=== PATIENT | female | born 1965 | race Caucasian/White ===

== ENCOUNTER → 2016-07-27 | Day surgery (SDC) | payer OTHER ==
[2016-07-15 15:22] VITALS: Ht 152.4 cm; Wt 75.9 kg
[~2016-07-27] VITALS: Ht 152.4 cm; Wt 75.9 kg
[~2016-07-27] MED LIST: BUSP5TAB59 PO; DEXL60CA4 PO; ESCI1TAB10 PO; LIDOCAINE HCL 2% 2 ML VIAL (20MG/ML) ONE; LUVOX PO; MULT-513 PO; NUTRPAK PO; OMEGCAP2 PO; PROPOFOL IV EMULSION 10 MG/ML 20 ML VIAL IV ONE; SODIUM CHLORIDE 0.9% 500ML 500 ML IV ONE; TAMS0.4C38 PO
--- NOTE | 2016-07-27 14:20 | Endo History and Physical ---
History & Physical Date of Service: Jul 27, 2016. Chief Complaint: Clarke's Referring Physician: Dr. Yoel Bennett History of Present Illness 50 yo CF who presents for EGD secondary to Clarke's Esophagus. Past Medical History Arthritis, Gastrointestinal Disorder, Anxiety, Reflux, Cancer, Depression Past Surgical History Hx Cardiac Surgery: No Hx Internal Defibrillator: No Hx Pacemaker: No Hx Abdominal Surgery: Yes (KESHAV BSO, BARTHOLIN CYST REMOVAL) Hx of Implantable Prosthesis: No Hx Post-Op Nausea and Vomiting: No Hx Cancer Surgery: Yes (RT BREAST LUMPECTOMY AND BLT MASTECTOMY WITH TRAM FLAP RECON) Hx Thoracic Surgery: No Hx Orthopedic: No Hx Urinary Tract Surgery: No Family History Polyp Social History Smoking Status: Former Smoker Hx Substance Use: No Hx Alcohol Use: Yes (OCCASIONAL) Allergies Coded Allergies: No Known Allergies (Verified , 07/15/16) Current Medications Reported Home Medications Medications Dose Route/Sig Max Daily Dose Days Date Category Dose Instructions Ibs Support (Nutritional Supplements) 1 Wade Wade 1 Tab PO QAM 07/15/16 Reported Fish Oil ([place]-3 Fatty Acids) 1 Cap Cap 1 Tab PO QAM 07/15/16 Reported [Luvox] 1 Tab PO HS 07/15/16 Reported Buspirone Hcl 5 Mg Tab 5 Mg PO TID PRN 06/18/13 Reported Dexilant (Dexlansoprazole) 60 Mg Cap 60 Mg PO QAM 12/17/12 Reported TAKE 1/2HOUR PRIOR TO BREAKFAST Mvi With Minerals (Multivitamins/Minerals) Tab 1 Tab PO QAM 12/17/12 Reported Vital Signs Weight (Kilograms): 75.91 Height (Feet): 5 Height (Inches): 0 Date Time Temp Pulse Resp B/P Pulse Ox O2 Delivery O2 Flow Rate FiO2 07/27/16 13:41 36.6 68 16 137/89 98 Room Air Physical Exam General Appearance: WD/WN, no apparent distress Respiratory/Chest: Auscultation: breath sounds normal Cardiovascular: Heart Auscultation: RRR Abdomen: Bowel Sounds: normal Inspection & Palpation: soft, non-distended, no tenderness, guarding & rebound Assessment and Plan Assessment: 50 yo CF who presents for EGD secondary to Clarke's Esophagus. Plan: Proceed with EGD.
--- NOTE | 2016-07-27 14:42 | Discharge Instructions ---
Endoscopy Patient Instructions Date / Procedure(s) Performed Jul 27, 2016. EGD Allergy Information Coded Allergies: No Known Allergies (Verified , 07/15/16) Discharge Date / Findings Jul 27, 2016. Gastritis s/p biopsies Hiatal hernia Clarke's esophagus s/p biopsies Medication Instructions OK to resume all medications today as prescribed Reported Home Medications Medications Dose Route/Sig Max Daily Dose Days Date Category Dose Instructions Ibs Support (Nutritional Supplements) 1 Wade Wade 1 Tab PO QAM 07/15/16 Reported Fish Oil ([place]-3 Fatty Acids) 1 Cap Cap 1 Tab PO QAM 07/15/16 Reported [Luvox] 1 Tab PO HS 07/15/16 Reported Buspirone Hcl 5 Mg Tab 5 Mg PO TID PRN 06/18/13 Reported Dexilant (Dexlansoprazole) 60 Mg Cap 60 Mg PO QAM 12/17/12 Reported TAKE 1/2HOUR PRIOR TO BREAKFAST Mvi With Minerals (Multivitamins/Minerals) Tab 1 Tab PO QAM 12/17/12 Reported Provider Instructions Activity Restrictions - No exercising or heavy lifting for 24 hours. - Do not drink alcohol the day of the procedure. - Do not drive a car or operate machinery until the day after the procedure. - Do not make any important decisions or sign important papers in 24 hours after the procedure. Following Day: - Return to full activity which may include returning to work/school. Diet Start your diet with liquids and light foods (jello, soup, juice, toast). Then eat your usual diet if not nauseated. Treatment For Common After Affects For mild abdominal pain, bloating, or excessive gas: - Rest - Eat lightly - Lie on right side Follow-Up Information Follow-up with Dr. Yoel Bennett as scheduled Anesthesia Information What You Should Know You have had a procedure that required some medicine to reduce anxiety and discomfort. This treatment is called moderate sedation. After receiving the treatment, you may be sleepy, but you will be able to breathe on your own. The effects of the treatment may last for several hours. Follow these instructions along with Activity/Diet recommendations noted above: * Do NOT do anything where dizziness or clumsiness would be dangerous. * Rest quietly at home today, then you can be up and about tomorrow. * Have a responsible person stay with you the rest of today. * You may have had an I.V. today. If so, you may take the dressing off later today. Recommendations Call your doctor if: * Trouble breathing * Continuous vomiting for more than 24 hours * Temperature above 101 degrees * Severe abdominal pain or bloating * Pain not relieved by pain medicine ordered * There is increased drainage or redness from any incision * A large amount of rectal bleeding greater than 2-3 tablespoons. (If you had a polyp/s removed or have hemorrhoids, a small amount of blood - from the rectum is to be expected.) * You have any unanswered questions or concerns. IN THE EVENT OF A SERIOUS EMERGENCY, GO TO THE NEAREST EMERGENCY ROOM Your discharge instructions were prepared by provider Dereje Vasquez. Patient Instructions Signature Page Farhana Goyal Patient (or Guardian) Signature/Date: I have read and understand the instructions given to me by my caregivers. Caregiver/RN/Doctor Signature/Date: The above-named patient and/or guardian has received patient instructions on this date. + Original Patient Signature Page (only) stays with chart. Please make copy for patient.
--- NOTE | 2016-07-27 14:48 | GI REPORT ---
Procedure Date: 07/27/2016 2:28 PM Procedure: Upper GI endoscopy Indications: Follow-up of Clarke's esophagus Medicines: Monitored Anesthesia Care Complications: No immediate complications. Estimated Blood Loss: Estimated blood loss: none. Procedure: Pre-Anesthesia Assessment: - Prior to the procedure, a History and Physical was performed, and patient medications and allergies were reviewed. The patient's tolerance of previous anesthesia was also reviewed. The risks and benefits of the procedure and the sedation options and risks were discussed with the patient. All questions were answered, and informed consent was obtained. Prior Anticoagulants: The patient has taken no previous anticoagulant or antiplatelet agents. ASA Grade Assessment: II - A patient with mild systemic disease. After reviewing the risks and benefits, the patient was deemed in satisfactory condition to undergo the procedure. After obtaining informed consent, the endoscope was passed under direct vision. Throughout the procedure, the patient's blood pressure, pulse, and oxygen saturations were monitored continuously. The scope was introduced through the mouth, and advanced to the second part of duodenum. The upper GI endoscopy was accomplished without difficulty. The patient tolerated the procedure well. Findings: There were esophageal mucosal changes consistent with short-segment Clarke's esophagus present at the gastroesophageal junction. The maximum longitudinal extent of these mucosal changes was 2 cm in length. Mucosa was biopsied with a cold forceps for histology. One specimen bottle was sent to pathology. A small hiatus hernia was present. Localized mild inflammation characterized by erythema was found in the gastric antrum. Biopsies were taken with a cold forceps for histology. The examined duodenum was normal. Impression: - Esophageal mucosal changes consistent with short-segment Clarke's esophagus. Biopsied. - Small hiatus hernia. - Gastritis. Biopsied. - Normal examined duodenum. Recommendation: - Resume previous diet. - Continue present medications. - Await pathology results. - Return to primary care physician as previously scheduled. Dereje Vasquez DO 07/27/2016 2:48:34 PM This report has been signed electronically. Note Initiated On: 07/27/2016 2:28 PM I attest to the content of the Intraoperative Record and orders documented therein, exceptions below
--- NOTE | 2016-07-27 15:01 | Anesthesiology Progress Note ---
Anesthesia Post Op Note Date & Time Jul 27, 2016 at 15:01 Vital Signs Pain Intensity: 0 Vital Signs Past 12 Hours Date Time Temp Pulse Resp B/P Pulse Ox O2 Delivery O2 Flow Rate FiO2 07/27/16 15:00 73 16 142/98 96 Room Air 07/27/16 14:45 78 16 119/76 99 Room Air 07/27/16 13:41 36.6 68 16 137/89 98 Room Air Notes Mental Status: alert / awake / arousable, participated in evaluation Pt Amnestic to Procedure: Yes Nausea / Vomiting: adequately controlled Pain: adequately controlled Airway Patency, RR, SpO2: stable & adequate BP & HR: stable & adequate Hydration State: stable & adequate Anesthetic Complications: no major complications apparent Pt doing well.
[2016-07-27 15:12] VITALS: BP 148/101; PULSE 70; O2SAT 96
== END | disposition home or self-care (01) ==
LOC: C.GI 13:06
PROVIDERS: ATTEND Internal Medicine
DX: K29.60 Other gastritis without bleeding (principal); K22.70 Barrett's esophagus without dysplasia; K44.9 Diaphragmatic hernia without obstruction or gangrene; Z87.891 Personal history of nicotine dependence; Z90.710 Acquired absence of both cervix and uterus; Z90.722 Acquired absence of ovaries, bilateral; Z90.79 Acquired absence of other genital organ(s)

== ENCOUNTER → 2016-10-06 | Outpatient (CLI) | payer OTHER ==
[~2016-10-06] MED LIST changes: -LIDOCAINE HCL 2% 2 ML VIAL (20MG/ML) ONE; -PROPOFOL IV EMULSION 10 MG/ML 20 ML VIAL IV ONE; -SODIUM CHLORIDE 0.9% 500ML 500 ML IV ONE
[2016-10-06 12:20] LABS: BASO % 0.3 %; BASO ABS # 0.02 K/uL (0-0.2); COMPLETE YES; EOS % 3.4 %; HEMATOCRIT 42.2 % (37-47); IG% 0.2 %; LYMPH ABS # 1.96 K/uL (1.2-3.4); MEAN CELL VOLUME 90.8 fL (80-100); MEAN CORPUSCULAR HEMOGLOBIN 29.9 pg (25-34); MEAN CORPUSCULAR HGB CONC 32.9 g/dl (32-36); MEAN PLATELET VOLUME 11.7 fL (7.4-10.4); MONO % 4.6 %; NEUT % 59.5 %; PLATELET COUNT 206 K/uL (130-400); RED BLOOD COUNT 4.65 M/uL (4.2-5.4); WHITE BLOOD COUNT 6.13 K/uL (4.8-10.8)
[2016-10-06 12:41] LABS: URINE APPEARANCE CLEAR (CLEAR); URINE BILIRUBIN NEG (NEG); URINE COLOR YELLOW; URINE EPITHELIAL CELL AUTO >30 /lpf (0-5); URINE NITRITE NEG (NEG); URINE SPECIFIC GRAVITY 1.023 (1.000-1.030); UROBILINOGEN NEG (NEG); ZZUR CULT IF INDIC CLEAN CATCH NO
[2016-10-06 12:49] LABS: MANUAL MICROSCOPIC REQUIRED? NO; REVIEW REQ? NO
[2016-10-06 12:55] LABS: CALCIUM 8.7 mg/dl (8.5-10.1)
[2016-10-06 13:03] LABS: ALT/SGPT 39 U/L (12-78); AST/SGOT 20 U/L (15-37); BLOOD UREA NITROGEN 19 mg/dl (7-18); BUN/CREATININE RATIO 21.9 (10-20); CARBON DIOXIDE 23 mmol/L (21-32); CHLORIDE 109 mmol/L (98-107); CHOLESTEROL 232 mg/dl (0-200); CREATININE 0.88 mg/dl (0.60-1.20); GLUCOSE 108 mg/dl (70-99); POTASSIUM 4.2 mmol/L (3.5-5.1); SODIUM 142 mmol/L (136-145); TRIGLYCERIDES 114 mg/dl (0-150); VERY LOW DENSITY LIPOPROT CALC 23 mg/dl
[2016-10-06 13:14] LABS: ALB/GLOB RATIO 0.9 (0.9-2); ALKALINE PHOSPHATASE 109 U/L (45-117); CHOLESTEROL/HDL RATIO 5.8; HDL CHOLESTEROL 40 mg/dl; LDL CHOLESTEROL CALCULATED 169 mg/dl
== END | disposition home or self-care (01) ==
LOC: C.LABBFT 07:42
PROVIDERS: ATTEND Physician Assistant Medical
DX: M54.9 Dorsalgia, unspecified (principal); E78.5 Hyperlipidemia, unspecified; R42 Dizziness and giddiness

== ENCOUNTER 2016-11-13 19:58 | Emergency (ER) | payer OTHER ==
[~2016-11-13] VITALS: Ht 152.4 cm; Wt 79.9 kg
[~2016-11-13 19:58] MED LIST changes: -ESCI1TAB10 PO; -TAMS0.4C38 PO
[2016-11-13 20:01] VITALS: TEMP 36.9; Ht 152.4 cm; Wt 79.9 kg
[2016-11-13] MEDS ORDERED: SODIUM CHLORIDE 0.9% 1000ML 1,000 ML IV STA (20:10)
[2016-11-13] MEDS ORDERED: ONDANSETRON INJ 2 MG/ML 2 ML VIAL IV STA (20:10)
[2016-11-13] MEDS ORDERED: KETOROLAC TROMETHAMINE 30 MG/ML VIAL IV STA (20:10)
[2016-11-13] MEDS ORDERED: MoRPHine SULFATE 4 MG/ML 1 ML CARP\\VIAL IV PRN (20:15)
--- NOTE | 2016-11-13 20:16 | EMERGENCY ROOM VISIT NOTE ---
History Report prepared by Dana: Des Correa Under the Supervision of: Dr. Aamir Tierney M.D. First contact with patient: 20:04 Chief Complaint: FLANK PAIN Stated Complaint: BACK PAIN RADITING TO LF SIDE/ABD History of Present Illness The patient is a 50 year old female who presents to the Emergency Room with complaints of worsening pain in her left flank that began night, 3 days prior to this visit. She rates the pain as a 6/10 in severity. The patient states that the pain is now radiating into her left lower abdominal quadrant as well. She denies any associated urinary irregularities or fevers. There is nothing that worsens/improves her pain. The patient had a similar episode roughly one month ago at work, but it was not as severe. She did visit with her primary care physician due to this episode and was evaluated for blood clotting and infection. These tests were unremarkable,and she opted to not have further testing done as the pain had resolved. She has had the flank pain intermittently since this initial episode. The patient has had a kidney stone in the past, and passed the stone without any intervention. 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 A total of 10 systems reviewed and were otherwise negative. Past Medical & Surgical Medical Problems: (1) Acid reflux (2) Clarke's esophagus Surgical Problems: (1) H/O mastectomy (2) H/O: hysterectomy Family History Cancer Diabetes mellitus Hypertension Kidney stones Social History Smoking Status: Never Smoker Alcohol Use: occasionally Marital Status: Housing Status: lives with family Occupation Status: employed Current/Historical Medications Scheduled Dexlansoprazole (Dexilant), 60 MG PO QAM Escitalopram Oxalate (Lexapro), 20 MG PO DAILY Multivitamins/Minerals (Mvi With Minerals), 1 TAB PO QAM Tamsulosin Hcl (Flomax), 0.4 MG PO DAILY Scheduled PRN Buspirone Hcl (Buspirone Hcl), 5 MG PO TID PRN for Anxiety Allergies Coded Allergies: No Known Allergies (Verified , 07/15/16) Physical Exam Vital Signs Date Time Temp Pulse Resp B/P (MAP) Pulse Ox O2 Delivery O2 Flow Rate FiO2 11/13/16 21:48 67 16 116/84 94 Room Air 11/13/16 21:05 71 16 143/96 94 Room Air 11/13/16 20:01 36.9 93 18 171/127 95 Room Air Physical Exam GENERAL: Patient is in no acute distress. HEENT: No acute trauma, normocephalic atraumatic, mucous membranes moist, no nasal congestion, no scleral icterus. NECK: No stridor, no adenopathy, no meningismus, trachea is midline. LUNGS: Clear to auscultation bilaterally, no wheeze, no rhonchi, breath sounds equal. HEART: Without murmurs gallops or rubs, regular rate and rhythm. ABDOMEN: Soft, with tenderness along the entire left side. Bowel sounds positive , no hernias, no peritonitis. BACK: There is left flank discomfort with percussion. EXTREMITIES: No cyanosis or edema, full range of motion of all the joints without pain or difficulty, no signs for acute trauma. NEUROLOGIC: Oriented x 3, no acute motor or sensory deficits, no focal weakness. SKIN: No rash, no jaundice, no diaphoresis. Medical Decision & Procedures ER Provider Diagnostic Interpretation: Radiology results as stated below per my review and radiologist interpretation: CT SCAN OF THE ABDOMEN AND PELVIS WITHOUT CONTRAST CLINICAL HISTORY: Left flank pain and hematuria COMPARISON STUDY: December 17, 2012 TECHNIQUE: CT scan of the abdomen and pelvis was performed from the lung bases to the proximal femurs. Images are reviewed in the axial, sagittal, and coronal planes. IV contrast was not administered for this examination. A dose lowering technique was utilized adhering to the principles of ALARA. CT DOSE: 1390.66 mGy.cm FINDINGS: Lower chest: The heart is normal in size and configuration, without pericardial effusion. The lung bases and pleural spaces are clear. Liver: The unenhanced liver is normal in size, contour, and attenuation. There is no intrahepatic biliary ductal dilatation. Gallbladder: Unremarkable. Spleen: Normal in size and attenuation. Pancreas: Unremarkable. Adrenal glands: Unremarkable. Kidneys: No renal, ureteral, or bladder calculi are visualized. Bowel: There are no transition zones indicate bowel obstruction. The appendix appears normal. There is no acute diverticulitis. Peritoneum: There is no intraperitoneal free air or abdominal ascites. Vasculature: The abdominal aorta is normal in course and caliber. Adenopathy: None. Pelvic viscera: The uterus appears surgically absent Skeletal structures: No destructive osseous lesions are seen. IMPRESSION: 1. No renal, ureteral, or bladder calculi identified 2. No evidence of bowel obstruction. No evidence of free air 3. Normal appendix. No evidence of acute diverticulitis. Electronically signed by: Perry Allred M.D. 11/13/2016 9:05 PM Dictated Date/Time: 11/13/2016 9:01 PM Laboratory Results 11/13/16 20:20 11/13/16 20:20 Test 11/13/16 20:20 11/13/16 20:27 Red Blood Count 4.93 M/uL (4.2-5.4) Mean Corpuscular Volume 89.7 fL (80-100) Mean Corpuscular Hemoglobin 30.6 pg (25-34) Mean Corpuscular Hemoglobin Concent 34.2 g/dl (32-36) RDW Standard Deviation 42.7 fL (36.4-46.3) RDW Coefficient of Variation 13.0 % (11.5-14.5) Mean Platelet Volume 11.3 fL (7.4-10.4) Anion Gap 9.0 mmol/L (3-11) Est Creatinine Clear Calc Drug Dose 74.9 ml/min Estimated GFR () 93.3 Estimated GFR (Non- 80.5 BUN/Creatinine Ratio 16.6 (10-20) Calcium Level 9.4 mg/dl (8.5-10.1) Lipase 176 U/L (73-393) Human Chorionic Gonadotropin, Qual NEG (NEG) Urine Color YELLOW Urine Appearance CLEAR (CLEAR) Urine pH 5.0 (4.5-7.5) Urine Specific [place] 1.017 (1.000-1.030) Urine Protein NEG (NEG) Urine Glucose (UA) NEG (NEG) Urine Ketones NEG (NEG) Urine Occult Blood NEG (NEG) Urine Nitrite NEG (NEG) Urine Bilirubin NEG (NEG) Urine Urobilinogen NEG (NEG) Urine Leukocyte Esterase SMALL (NEG) Urine WBC (Auto) 5-10 /hpf (0-5) Urine RBC (Auto) 0-4 /hpf (0-4) Urine Hyaline Casts (Auto) 1-5 /lpf (0-5) Urine Epithelial Cells (Auto) >30 /lpf (0-5) Urine Bacteria (Auto) NEG (NEG) Laboratory results reviewed by me. Medications Administered Medications (Trade) Dose Ordered Sig/Sixto Route Start Time Stop Time Status Last Admin Dose Admin Ondansetron HCl (Zofran Inj) 4 mg NOW STAT IV 11/13/16 20:10 11/13/16 20:12 DC 11/13/16 20:33 4 MG Sodium Chloride 1,000 ml @ 999 mls/hr Q1H1M STAT IV 11/13/16 20:10 11/13/16 21:10 DC 11/13/16 20:35 999 MLS/HR Morphine Sulfate (MoRPHine SULFATE INJ) 4 mg Q15M PRN IV 11/13/16 20:15 11/13/16 22:05 DC 11/13/16 20:35 4 MG Ketorolac Tromethamine (Toradol Inj) 30 mg NOW STAT IV 11/13/16 20:10 11/13/16 20:12 DC 11/13/16 20:34 30 MG ED Course 2005: The patient was evaluated in room B8. A complete history and physical exam was performed. 2009: Ordered Toradol 30 mg IV, Sodium Chloride 1000 mL @ 999 mL/hr IV, Zofran 4 mg IV. 2015: Ordered Morphine Sulfate 4 mg IV. 2129: Reevaluated the patient. Discussed results and discharge instructions: she verbalized understanding and agreement. The patient is ready for discharge. Medical Decision Differential Diagnosis includes; pyelonephritis, musculoskeletal pain, renal colic, UTI, renal failure, pancreatitis, pneumonia, shingles. There is no leukocytosis or concerning anemia. No significant electrolyte abnormality, kidney failure. There is no pancreatitis. testing is negative. Urinalysis does not show infection. Abdominal and pelvis CT does not show any obvious ureteral stone, there is no hydronephrosis. No other findings that would explain the left flank and abdominal pain. The patient received IV saline, she received IV Toradol, IV morphine and IV Zofran. She is feeling improved. The patient has had renal stones before. She may be trying to pass a very small stone. She may be suffering from musculoskeletal pain. She has had symptoms intermittently for a month. The patient will be discharged with Flomax to help urinary dilation. She will strain all her urine for a possible stone-certainly, a small stone could be missed on CT. Hydration was encouraged, Motrin or Tylenol or both were encouraged for pain. Patient was told to return to the ER for vomiting, worsening symptoms or lack of improvement. She will follow with her doctor this week. Impression Primary Impression: Left flank pain Scribe Attestation The scribe's documentation has been prepared under my direction and personally reviewed by me in its entirety. I confirm that the note above accurately reflects all work, treatment, procedures, and medical decision making performed by me. Departure Information Dispostion Home / Self-Care Prescriptions Tamsulosin Hcl (FLOMAX) 0.4 Mg Cap 0.4 MG PO DAILY, #10 CAP Prov: Aamir Tierney M.D. 11/13/16 Referrals Yoel Bennett M.D. (PCP) Forms HOME CARE DOCUMENTATION FORM, IMPORTANT VISIT INFORMATION Patient Instructions My [facility] Additional Instructions motrin 600 mg 3x per day for pain tylenol for pain also as needed heat to the back may help strain all the urine stay well hydrated flomax daily to try and help pass any stones return for uncontrolled pain, vomiting or fever
[2016-11-13 20:39] LABS: HEMATOCRIT 44.2 % (37-47); MEAN CELL VOLUME 89.7 fL (80-100); MEAN CORPUSCULAR HEMOGLOBIN 30.6 pg (25-34); MEAN CORPUSCULAR HGB CONC 34.2 g/dl (32-36); MEAN PLATELET VOLUME 11.3 fL (7.4-10.4); PLATELET COUNT 219 K/uL (130-400); RED BLOOD COUNT 4.93 M/uL (4.2-5.4); WHITE BLOOD COUNT 8.15 K/uL (4.8-10.8)
[2016-11-13 20:47] LABS: PREG INTERNAL NEGATIVE QC NEG CLEAR BACKGROUND; PREG INTERNAL POSITIVE QC POS CONTROL LINE
[2016-11-13 20:55] LABS: URINE APPEARANCE CLEAR (CLEAR); URINE BILIRUBIN NEG (NEG); URINE COLOR YELLOW; URINE EPITHELIAL CELL AUTO >30 /lpf (0-5); URINE NITRITE NEG (NEG); URINE SPECIFIC GRAVITY 1.017 (1.000-1.030); UROBILINOGEN NEG (NEG); ZZUR CULT IF INDIC CLEAN CATCH NO
[2016-11-13 20:56] LABS: BUN/CREATININE RATIO 16.6 (10-20); CALCIUM 9.4 mg/dl (8.5-10.1); CREATININE 0.85 mg/dl (0.60-1.20); POTASSIUM 3.8 mmol/L (3.5-5.1)
[2016-11-13 20:56] LABS: MANUAL MICROSCOPIC REQUIRED? NO; REVIEW REQ? NO
--- NOTE | 2016-11-13 21:06 | DIAGNOSTIC IMAGING REPORT ---
CT SCAN OF THE ABDOMEN AND PELVIS WITHOUT CONTRAST CLINICAL HISTORY: Left flank pain and hematuria COMPARISON STUDY: December 17, 2012 TECHNIQUE: CT scan of the abdomen and pelvis was performed from the lung bases to the proximal femurs. Images are reviewed in the axial, sagittal, and coronal planes. IV contrast was not administered for this examination. A dose lowering technique was utilized adhering to the principles of ALARA. CT DOSE: 1390.66 mGy.cm FINDINGS: Lower chest: The heart is normal in size and configuration, without pericardial effusion. The lung bases and pleural spaces are clear. Liver: The unenhanced liver is normal in size, contour, and attenuation. There is no intrahepatic biliary ductal dilatation. Gallbladder: Unremarkable. Spleen: Normal in size and attenuation. Pancreas: Unremarkable. Adrenal glands: Unremarkable. Kidneys: No renal, ureteral, or bladder calculi are visualized. Bowel: There are no transition zones indicate bowel obstruction. The appendix appears normal. There is no acute diverticulitis. Peritoneum: There is no intraperitoneal free air or abdominal ascites. Vasculature: The abdominal aorta is normal in course and caliber. Adenopathy: None. Pelvic viscera: The uterus appears surgically absent Skeletal structures: No destructive osseous lesions are seen. IMPRESSION: 1. No renal, ureteral, or bladder calculi identified 2. No evidence of bowel obstruction. No evidence of free air 3. Normal appendix. No evidence of acute diverticulitis. Electronically signed by: Perry Allred M.D. 11/13/2016 9:05 PM Dictated Date/Time: 11/13/2016 9:01 PM
[2016-11-13] MEDS ORDERED: ESCI1TAB10 PO (21:25)
[2016-11-13] MEDS ORDERED: TAMS0.4C38 PO (21:38)
[2016-11-13 21:48] VITALS: BP 116/84; PULSE 67; O2SAT 94
== END 2016-11-13 20:50 | disposition home or self-care (01) ==
LOC: C.EDB 20:00
DX: R10.9 Unspecified abdominal pain (principal); K21.9 Gastro-esophageal reflux disease without esophagitis; K22.70 Barrett's esophagus without dysplasia; Z83.3 Family history of diabetes mellitus; Z82.49 Family history of ischemic heart disease and other diseases of the circulatory system

== ENCOUNTER → 2017-08-23 | Outpatient (CLI) | payer OTHER ==
[~2017-08-23] MED LIST changes: +ESCI1TAB10 PO; -LUVOX PO; -NUTRPAK PO; -OMEGCAP2 PO; +OPTIRAY 320 IV PRN
--- NOTE | 2017-08-23 13:50 | DIAGNOSTIC IMAGING REPORT ---
(CHEST FOR PE) ANGIO WITH CT DOSE: 359.45 mGy.cm HISTORY: 51 years-old Female acute shortness of breath with dyspnea on exertion TECHNIQUE: Multiple CTA images of the chest were obtained after the intravenous administration of 90 ml Optiray 320. Coronal and sagittal MIPS were obtained from the axial data set and were submitted for review. A dose lowering technique was utilized adhering to the principles of ALARA. COMPARISON: CT abdomen and pelvis 11/13/2016, chest radiograph 03/30/2016 FINDINGS: CTA: Heart is normal in size without pericardial effusion. Thoracic aorta is normal in both course and caliber without aneurysm or dissection. The imaged great vessels appear patent. Pulmonary arterial tree is opacified to the level of the subsegmental branches and demonstrates no focal filling defects to suggest pulmonary thromboembolic disease. CT CHEST: No dominant thyroid nodule identified. No pathologic adenopathy. There is no pneumothorax, pleural effusion, focal airspace consolidation or overt pulmonary edema. Mild subsegmental bibasilar atelectasis. Central airways are patent. No acute process of the imaged upper abdomen. Soft tissues are unremarkable. Post surgical changes of the breasts. Bones appear intact. Mild multilevel endplate spurring about the spine. IMPRESSION: 1. No acute intrathoracic abnormality identified, specifically no acute aortic pathology or evidence of pulmonary thromboembolic disease. 2. No lobar airspace consolidation or pathologic adenopathy. The above report was generated using voice recognition software. It may contain grammatical, syntax or spelling errors. Electronically signed by: Dio Nugent M.D. 08/23/2017 1:49 PM Dictated Date/Time: 08/23/2017 1:44 PM
[2017-08-23 14:40] LABS: BASO % 0.3 %; BASO ABS # 0.02 K/uL (0-0.2); EOS % 3.5 %; EOS ABS # 0.23 K/uL (0-0.5); HEMOGLOBIN 13.8 g/dL (12.0-16.0); IG# 0.01 K/uL (0.00-0.02); LYMPH % 33.8 %; LYMPH ABS # 2.21 K/uL (1.2-3.4); MEAN CELL VOLUME 86.7 fL (80-100); MEAN CORPUSCULAR HEMOGLOBIN 29.2 pg (25-34); MEAN CORPUSCULAR HGB CONC 33.7 g/dl (32-36); MEAN PLATELET VOLUME 11.9 fL (7.4-10.4); MONO % 4.7 %; MONO ABS # 0.31 K/uL (0.11-0.59); NEUT % 57.5 %; NEUT ABS # 3.76 K/uL (1.4-6.5); PLATELET COUNT 202 K/uL (130-400); RED CELL DISTRIBUTION WIDTH CV 13.5 % (11.5-14.5); RED CELL DISTRIBUTION WIDTH SD 42.8 fL (36.4-46.3); WHITE BLOOD COUNT 6.54 K/uL (4.8-10.8)
[2017-08-23 15:06] LABS: ALBUMIN 3.7 gm/dl (3.4-5.0); ALT/SGPT 31 U/L (12-78); AST/SGOT 18 U/L (15-37); BLOOD UREA NITROGEN 12 mg/dl (7-18); CALCIUM 8.8 mg/dl (8.5-10.1); CARBON DIOXIDE 28 mmol/L (21-32); CREATININE 0.77 mg/dl (0.60-1.20); GLUCOSE 88 mg/dl (70-99); SODIUM 136 mmol/L (136-145)
[2017-08-23 15:16] LABS: ALKALINE PHOSPHATASE 140 U/L (45-117); TOTAL PROTEIN 7.6 gm/dl (6.4-8.2)
== END | disposition home or self-care (01) ==
LOC: C.CTS 13:13
PROVIDERS: ATTEND Physician Assistant Medical
DX: R06.09 Other forms of dyspnea (principal)